=== PATIENT | male | born 1975 | race Native Hawaiian/Other Pacific Islander ===

== ENCOUNTER 2017-05-30 17:29 | Emergency (ER) | payer OTHER ==
[~2017-05-30] VITALS: Ht 170.2 cm; Wt 71.7 kg
[2017-05-30 18:14] LABS: PLATELET COUNT 426 K/uL (142-355)
[2017-05-30 20:06] VITALS: BP 115/81; TEMP 98.7
== END 2017-05-30 20:07 | disposition home or self-care (01) ==
LOC: ED 17:29
DX: L03.031 Cellulitis of right toe (principal)
CPT/HCPCS: 85027; 99283

== ENCOUNTER 2018-02-08 20:13 | Emergency (ER) | payer OTHER ==
[~2018-02-08] VITALS: Ht 170.2 cm; Wt 72.6 kg
[2018-02-08 21:42] LABS: PLATELET COUNT 153 K/uL (142-355)
[2018-02-08 21:52] LABS: POTASSIUM 3.9 mmol/L (3.6-5.2)
[2018-02-08 22:54] VITALS: BP 111/72; TEMP 98.5
== END 2018-02-08 22:50 | disposition home or self-care (01) ==
LOC: ED 20:13
DX: L03.114 Cellulitis of left upper limb (principal); W57.XXXA Bitten or stung by nonvenomous insect and other nonvenomous arthropods, initial encounter; M79.642 Pain in left hand; Y92.89 Other specified places as the place of occurrence of the external cause
CPT/HCPCS: 80053; 85027; 90715; 99284; J0696; J2930

== ENCOUNTER 2018-04-27 10:17 | Emergency (ER) | payer OTHER ==
[~2018-04-27] VITALS: Ht 170.2 cm; Wt 72.6 kg
[2018-04-27 11:39] LABS: PLATELET COUNT 368 K/uL (142-355)
[2018-04-27 11:53] LABS: POTASSIUM 4.3 mmol/L (3.6-5.2)
[2018-04-27 15:40] VITALS: BP 121/71; TEMP 97.7
== END 2018-04-27 15:40 | disposition home or self-care (01) ==
LOC: ED 10:17
DX: G43.909 Migraine, unspecified, not intractable, without status migrainosus (principal); K29.70 Gastritis, unspecified, without bleeding
CPT/HCPCS: 36415; 80053; 81000; 85027; 96365; 96374; 96375; 99284; J1100; J1200; J1885; J2405; J7120; Q9963

== ENCOUNTER 2018-07-04 15:27 | Emergency (ER) | payer OTHER ==
[~2018-07-04] VITALS: Ht 170.2 cm; Wt 72.6 kg
[2018-07-04 17:15] LABS: PLATELET COUNT 398 K/uL (142-355)
[2018-07-04 17:26] LABS: POTASSIUM 3.9 mmol/L (3.6-5.2)
[2018-07-04 18:49] VITALS: BP 131/89; TEMP 97.7
== END 2018-07-04 18:50 | disposition home or self-care (01) ==
LOC: ED 15:27
PROVIDERS: Family Medicine
DX: J06.9 Acute upper respiratory infection, unspecified (principal)
CPT/HCPCS: 36415; 80053; 85027; 87502; 99283

== ENCOUNTER 2018-12-04 05:54 | Emergency (ER) | payer OTHER ==
[~2018-12-04] VITALS: Ht 170.2 cm; Wt 72.6 kg
[2018-12-04 06:20] VITALS: BP 126/89; TEMP 98.1
[2018-12-04 07:27] LABS: PLATELET COUNT 374 K/uL (142-355)
[2018-12-04 07:34] LABS: POTASSIUM 3.8 mmol/L (3.6-5.2)
== END 2018-12-04 08:26 | disposition home or self-care (01) ==
LOC: ED 05:54
PROVIDERS: Family Medicine
DX: M54.9 Dorsalgia, unspecified (principal); M47.896 Other spondylosis, lumbar region
CPT/HCPCS: 80053; 81000; 85027; 96372; 99283; J1885